=== PATIENT | female | born 1980 | race Caucasian/White ===

== ENCOUNTER 2021-10-14 17:33 | Inpatient (IN) | payer MEDICAID ==
[~2021-10-14] VITALS: Ht 162.6 cm; Wt 90.0 kg
[2021-10-14] MEDS ORDERED: PIPERACILLIN SODIUM/TAZOBACTAM 4.5 GM in DEXTROSE 5%-WATER 100 ML IV ONE (19:45)
[2021-10-14] MEDS ORDERED: SODIUM CHLORIDE 0.9% 1,000 ML IV ONE (19:45)
[2021-10-14] MEDS ORDERED: ACETAMINOPHEN 500 MG TABLET PO ONE (19:45)
[2021-10-14] MEDS ORDERED: VANCOMYCIN HCL 1.25 GM in DEXTROSE 5%-WATER 250 ML IV ONE (19:45)
[2021-10-14] MEDS ORDERED: KETOROLAC TROMETHAMINE 30 MG/ML VIAL IVP ONE (19:45)
[2021-10-14] MEDS ORDERED: IOHEXOL 350 MG/ML 100 ML VIAL ONE (20:04)
[2021-10-14] MEDS ORDERED: SODIUM CHLORIDE 0.9% 100 ML ONE (20:05)
[2021-10-14] MEDS ORDERED: IOHEXOL 350 MG/ML 75 ML VIAL ONE ×2 (20:05)
[2021-10-14 20:20] LABS: ANION GAP 8 mmol/L (8-16); CALCIUM, TOTAL 9.4 mg/dL (8.8-10.5); CARBON DIOXIDE 29 mmol/L (22-29); CHLORIDE 97 mmol/L (98-107); GLUCOSE,RANDOM 96 mg/dL (70-110); POTASSIUM 3.5 mmol/L (3.5-5.1); SODIUM SERUM 134 mmol/L (136-145); UREA NITROGEN, BLOOD 12 mg/dL (7-18)
[2021-10-14 20:21] LABS: BASOPHILS % (AUTO) 0.4 % (0.0-2.0); EOSINOPHILS % (AUTO) 1.6 % (1.0-6.0); HEMATOCRIT 36.5 % (36-46); HEMOGLOBIN 12.5 g/dL (12.0-16.0); LYMPHOCYTES # (AUTO) 1.7 K/uL (1.0-4.8); LYMPHOCYTES % (AUTO) 13.9 % (22.0-44.0); MEAN CORPUSCULAR HEMOGLOBIN 28.3 pg (26.0-34.0); MEAN CORPUSCULAR HGB CONC 34.2 G/dL (31.0-37.0); MEAN CORPUSCULAR VOLUME 83 fL (80-100); MONOCYTES % (AUTO) 8.6 % (2.0-9.0); NEUTROPHILS % (AUTO) 75.5 % (40.0-70.0); PLATELET COUNT (AUTO) 328 K/uL (150-450); RED BLOOD CELL COUNT(AUTO) 4.41 MIL/uL (4.00-5.20)
[2021-10-14 20:25] LABS: GLOMERULAR FILTR. RATE CALC > 60 mL/min (>60)
[2021-10-14 20:33] LABS: ALANINE AMINOTRANSFERASE 26 U/L (12-78); ALBUMIN 3.9 g/dL (3.4-5.0); ALKALINE PHOSPHATASE 72 U/L (46-116); ASPARTATE AMINOTRANSFERASE 16 U/L (15-37); BILIRUBIN,TOTAL 0.6 mg/dL (0.1-1.0); HCG,QUANTITATIVE < 1 mIU/mL (0-6); TOTAL PROTEIN, SERUM 8.6 g/dL (6.4-8.2)
[2021-10-14 20:43] LABS: COVID AG,FIA SOURCE NASOPHARYNGEAL
[2021-10-14 20:43] LABS: LACTIC ACID 0.7 mmol/L (0.4-2.0)
[2021-10-14] MEDS ORDERED: ONDANSETRON HCL 4 MG/2 ML VIAL IVP PRN ×2 (22:30→22:45)
[2021-10-14] MEDS ORDERED: 0.9% SODIUM CHLORIDE 10 ML SYRINGE IVP PRN (22:30)
[2021-10-14] MEDS ORDERED: ACETAMINOPHEN 325 MG TABLET PO PRN (22:30)
[2021-10-14] MEDS ORDERED: MORPHINE SULFATE 2 MG/ML SYRINGE IVP PRN (22:45)
[2021-10-15] MEDS: HEPARIN SODIUM,PORCINE 5,000 UNITS/ML VIAL SQ SCH ×3 (00:07→16:22)
[2021-10-15 03:08] VITALS: BP 131/75
[2021-10-15] MEDS ORDERED: CefTRIAXone 1 GM/DEXTROSE 50 ML IV SCH (06:00)
[2021-10-15 06:44] LABS: BASOPHILS % (AUTO) 0.6 % (0.0-2.0); EOSINOPHILS % (AUTO) 2.8 % (1.0-6.0); HEMATOCRIT 31.6 % (36-46); HEMOGLOBIN 10.9 g/dL (12.0-16.0); LYMPHOCYTES # (AUTO) 1.7 K/uL (1.0-4.8); LYMPHOCYTES % (AUTO) 15.7 % (22.0-44.0); MEAN CORPUSCULAR HEMOGLOBIN 28.7 pg (26.0-34.0); MEAN CORPUSCULAR HGB CONC 34.5 G/dL (31.0-37.0); MEAN CORPUSCULAR VOLUME 83 fL (80-100); MONOCYTES # (AUTO) 0.8 K/uL (0.1-1.0); MONOCYTES % (AUTO) 7.8 % (2.0-9.0); NEUTROPHILS # (AUTO) 7.9 K/uL (1.8-7.7); NEUTROPHILS % (AUTO) 73.1 % (40.0-70.0); PLATELET COUNT (AUTO) 264 K/uL (150-450); RED BLOOD CELL COUNT(AUTO) 3.81 MIL/uL (4.00-5.20); RED CELL DISTRIBUTION WIDTH 13.7 % (11.5-14.5)
[2021-10-15 06:53] LABS: ALANINE AMINOTRANSFERASE 21 U/L (12-78); ALBUMIN 2.8 g/dL (3.4-5.0); ALKALINE PHOSPHATASE 59 U/L (46-116); ANION GAP 5 mmol/L (8-16); ASPARTATE AMINOTRANSFERASE 15 U/L (15-37); BILIRUBIN,TOTAL 0.5 mg/dL (0.1-1.0); CARBON DIOXIDE 27 mmol/L (22-29); CHLORIDE 102 mmol/L (98-107); CREATININE 0.61 mg/dL (0.60-1.30); GLUCOSE,RANDOM 103 mg/dL (70-110); POTASSIUM 3.6 mmol/L (3.5-5.1); SODIUM SERUM 134 mmol/L (136-145); TOTAL PROTEIN, SERUM 6.5 g/dL (6.4-8.2); UREA NITROGEN, BLOOD 10 mg/dL (7-18)
[2021-10-15 07:01] LABS: GLOMERULAR FILTR. RATE CALC > 60 mL/min (>60)
[2021-10-15] MEDS ORDERED: SODIUM CHLORIDE 0.9% 0 ML IV ONE (07:21)
[2021-10-15 07:48] VITALS: BP 113/66
[2021-10-15] MEDS: ACETAMINOPHEN 325 MG TABLET PO PRN ×2 (08:13→16:23)
[2021-10-15] MEDS: VANCOMYCIN HCL 1.5 GM in DEXTROSE 5%-WATER 250 ML IV SCH ×2 (10:54→16:22)
[2021-10-15 16:23] VITALS: BP 133/78
[2021-10-15] MEDS ORDERED: SODIUM CHLORIDE 0.9% 500 ML IV ONE (17:30)
[2021-10-15 21:45] VITALS: BP 107/58
[2021-10-16] MEDS: VANCOMYCIN HCL 1.5 GM in DEXTROSE 5%-WATER 250 ML IV SCH ×2 (00:03→08:01)
[2021-10-16] MEDS: HEPARIN SODIUM,PORCINE 5,000 UNITS/ML VIAL SQ SCH ×4 (00:03→23:52)
[2021-10-16 05:35] VITALS: BP 122/76
[2021-10-16 07:31] VITALS: BP 124/70
[2021-10-16] MEDS: ACETAMINOPHEN 325 MG TABLET PO PRN (08:09)
[2021-10-16 08:27] LABS: ANION GAP 7 mmol/L (8-16); CALCIUM, TOTAL 8.3 mg/dL (8.8-10.5); CARBON DIOXIDE 27 mmol/L (22-29); CHLORIDE 102 mmol/L (98-107); CREATININE 0.59 mg/dL (0.60-1.30); GLUCOSE,RANDOM 99 mg/dL (70-110); POTASSIUM 3.9 mmol/L (3.5-5.1); SODIUM SERUM 136 mmol/L (136-145); UREA NITROGEN, BLOOD 6 mg/dL (7-18); VANCOMYCIN,RANDOM 21.4 mcg/mL (25.0-50.0)
[2021-10-16 08:31] LABS: GLOMERULAR FILTR. RATE CALC > 60 mL/min (>60)
[2021-10-16 15:11] VITALS: BP 120/74
[2021-10-16] MEDS: COLLAGENASE 250 UNITS/GM 30 GM OINTMENT TP SCH (16:00)
[2021-10-16] MEDS: VANCOMYCIN HCL 1.25 GM in DEXTROSE 5%-WATER 250 ML IV SCH ×2 (16:00→23:51)
[2021-10-16] MEDS ORDERED: SODIUM CHLORIDE 0.9% 500 ML IV ONE (18:24)
[2021-10-16 19:28] VITALS: BP 129/76
[2021-10-17 04:43] VITALS: BP 119/70
[2021-10-17 06:55] LABS: ANION GAP 6 mmol/L (8-16); CALCIUM, TOTAL 8.6 mg/dL (8.8-10.5); CARBON DIOXIDE 28 mmol/L (22-29); CHLORIDE 104 mmol/L (98-107); CREATININE 0.61 mg/dL (0.60-1.30); GLOMERULAR FILTR. RATE CALC > 60 mL/min (>60); GLUCOSE,RANDOM 99 mg/dL (70-110); POTASSIUM 3.9 mmol/L (3.5-5.1); SODIUM SERUM 138 mmol/L (136-145); UREA NITROGEN, BLOOD 7 mg/dL (7-18)
[2021-10-17 08:02] VITALS: BP 119/65
[2021-10-17] MEDS: HEPARIN SODIUM,PORCINE 5,000 UNITS/ML VIAL SQ SCH ×3 (08:40→23:25)
[2021-10-17] MEDS: VANCOMYCIN HCL 1.25 GM in DEXTROSE 5%-WATER 250 ML IV SCH ×3 (08:40→23:25)
[2021-10-17] MEDS: COLLAGENASE 250 UNITS/GM 30 GM OINTMENT TP SCH (10:44)
[2021-10-17 20:56] VITALS: BP 121/81
[2021-10-17] MEDS ORDERED: SODIUM CHLORIDE 0.9% 250 ML IV ONE (23:24)
[2021-10-18 05:38] VITALS: BP 126/84
[2021-10-18 06:41] LABS: ANION GAP 5 mmol/L (8-16); CALCIUM, TOTAL 8.9 mg/dL (8.8-10.5); CARBON DIOXIDE 28 mmol/L (22-29); CHLORIDE 103 mmol/L (98-107); CREATININE 0.67 mg/dL (0.60-1.30); GLUCOSE,RANDOM 92 mg/dL (70-110); POTASSIUM 3.9 mmol/L (3.5-5.1); SODIUM SERUM 136 mmol/L (136-145); UREA NITROGEN, BLOOD 7 mg/dL (7-18); VANCOMYCIN,RANDOM 19.1 mcg/mL (25.0-50.0)
[2021-10-18 06:55] LABS: GLOMERULAR FILTR. RATE CALC > 60 mL/min (>60)
[2021-10-18 08:12] VITALS: BP 127/70
[2021-10-18] MEDS: HEPARIN SODIUM,PORCINE 5,000 UNITS/ML VIAL SQ SCH ×3 (08:47→23:49)
[2021-10-18] MEDS: VANCOMYCIN HCL 1.25 GM in DEXTROSE 5%-WATER 250 ML IV SCH ×3 (09:21→23:49)
[2021-10-18] MEDS: COLLAGENASE 250 UNITS/GM 30 GM OINTMENT TP SCH (09:21)
[2021-10-18 15:17] VITALS: BP 133/62
[2021-10-18 19:50] VITALS: BP 134/71
[2021-10-19] MEDS ORDERED: SODIUM CHLORIDE 0.9% 250 ML IV ONE (01:42)
[2021-10-19 04:25] VITALS: BP 122/81
[2021-10-19 06:33] LABS: ANION GAP 6 mmol/L (8-16); CALCIUM, TOTAL 9.2 mg/dL (8.8-10.5); CARBON DIOXIDE 27 mmol/L (22-29); CHLORIDE 102 mmol/L (98-107); CREATININE 0.73 mg/dL (0.60-1.30); GLUCOSE,RANDOM 97 mg/dL (70-110); POTASSIUM 3.7 mmol/L (3.5-5.1); SODIUM SERUM 135 mmol/L (136-145); UREA NITROGEN, BLOOD 7 mg/dL (7-18)
[2021-10-19 06:51] LABS: GLOMERULAR FILTR. RATE CALC > 60 mL/min (>60)
[2021-10-19] MEDS: VANCOMYCIN HCL 1.25 GM in DEXTROSE 5%-WATER 250 ML IV SCH (07:47)
[2021-10-19] MEDS: HEPARIN SODIUM,PORCINE 5,000 UNITS/ML VIAL SQ SCH ×3 (07:47→23:54)
[2021-10-19 08:44] VITALS: BP 130/83
[2021-10-19] MEDS: COLLAGENASE 250 UNITS/GM 30 GM OINTMENT TP SCH (09:00)
[2021-10-19] MEDS: VANCOMYCIN HCL 1 GM in DEXTROSE 5%-WATER 250 ML IV SCH ×2 (15:56→23:55)
[2021-10-19 16:23] VITALS: BP 128/79
[2021-10-19 20:39] VITALS: BP 126/77
[2021-10-19] MEDS: ACETAMINOPHEN 325 MG TABLET PO PRN (20:42)
[2021-10-20 04:52] VITALS: BP 118/79
[2021-10-20 07:06] LABS: ANION GAP 6 mmol/L (8-16); CALCIUM, TOTAL 9.3 mg/dL (8.8-10.5); CARBON DIOXIDE 30 mmol/L (22-29); CHLORIDE 100 mmol/L (98-107); CREATININE 0.76 mg/dL (0.60-1.30); GLUCOSE,RANDOM 92 mg/dL (70-110); POTASSIUM 4.1 mmol/L (3.5-5.1); SODIUM SERUM 136 mmol/L (136-145); UREA NITROGEN, BLOOD 8 mg/dL (7-18)
[2021-10-20 07:13] LABS: GLOMERULAR FILTR. RATE CALC > 60 mL/min (>60)
[2021-10-20 08:09] VITALS: BP 126/80
[2021-10-20] MEDS: HEPARIN SODIUM,PORCINE 5,000 UNITS/ML VIAL SQ SCH ×3 (09:08→23:31)
[2021-10-20] MEDS: VANCOMYCIN HCL 1 GM in DEXTROSE 5%-WATER 250 ML IV SCH ×3 (09:08→23:32)
[2021-10-20] MEDS: COLLAGENASE 250 UNITS/GM 30 GM OINTMENT TP SCH (09:08)
[2021-10-20] MEDS: MULTIVITAMINS WITH MINERALS, THERAPEUTIC TABLET PO SCH (09:08)
[2021-10-20 15:57] VITALS: BP 127/77
[2021-10-20 20:35] VITALS: BP 133/88
[2021-10-21 04:18] VITALS: BP 121/66
[2021-10-21 06:53] LABS: ANION GAP 5 mmol/L (8-16); CALCIUM, TOTAL 9.1 mg/dL (8.8-10.5); CARBON DIOXIDE 29 mmol/L (22-29); CHLORIDE 101 mmol/L (98-107); CREATININE 0.73 mg/dL (0.60-1.30); GLUCOSE,RANDOM 101 mg/dL (70-110); POTASSIUM 4.1 mmol/L (3.5-5.1); SODIUM SERUM 135 mmol/L (136-145); UREA NITROGEN, BLOOD 10 mg/dL (7-18); VANCOMYCIN,RANDOM 20.4 mcg/mL (25.0-50.0)
[2021-10-21 06:54] LABS: GLOMERULAR FILTR. RATE CALC > 60 mL/min (>60)
[2021-10-21] MEDS ORDERED: CLIN300C58 PO (07:58)
[2021-10-21] MEDS ORDERED: CEPH-558 PO (07:58)
[2021-10-21 08:10] VITALS: BP 125/78
[2021-10-21] MEDS: MULTIVITAMINS WITH MINERALS, THERAPEUTIC TABLET PO SCH (08:11)
[2021-10-21] MEDS: VANCOMYCIN HCL 1 GM in DEXTROSE 5%-WATER 250 ML IV SCH (08:11)
[2021-10-21] MEDS: HEPARIN SODIUM,PORCINE 5,000 UNITS/ML VIAL SQ SCH (08:11)
[2021-10-21] MEDS: COLLAGENASE 250 UNITS/GM 30 GM OINTMENT TP SCH (08:12)
== END 2021-10-21 12:05 | disposition home or self-care (01) | DRG 383 ==
LOC: EMS 17:46 → 6N 10-15 01:11 → 6S 10-17 23:20
PROVIDERS: ADMIT Internal Medicine; ATTEND Internal Medicine
DX: L03.116 Cellulitis of left lower limb (principal); E87.1 Hypo-osmolality and hyponatremia; D64.9 Anemia, unspecified; E66.9 Obesity, unspecified; W57.XXXA Bitten or stung by nonvenomous insect and other nonvenomous arthropods, initial encounter; Z20.822 Contact with and (suspected) exposure to COVID-19; Z79.899 Other long term (current) drug therapy; Z68.34 Body mass index [BMI] 34.0-34.9, adult; Y93.89 Activity, other specified; Y92.89 Other specified places as the place of occurrence of the external cause; Y99.8 Other external cause status
CPT/HCPCS: 73701; 80048; 80053; 80202; 83605; 84702; 85025; 87040; 87081; 99285; J0696; J1644; J1885; J2543; J3370; J7030; J7040; J7050; J7060; Q9967